=== PATIENT | male | born 1995 | race Caucasian/White ===

== ENCOUNTER → 2017-04-16 | Day surgery (SDC) | payer OTHER ==
[2017-04-15 16:17] VITALS: Ht 185.4 cm; Wt 84.1 kg
[~2017-04-16] VITALS: Ht 185.4 cm; Wt 84.1 kg
[~2017-04-16] MED LIST: ACET-1311 PO; ATROPINE SULFATE 0.1 MG/ML 5ML SYR IV PRN; BUPIVACAINE 0.5 % 5 MG/1 ML MPF 30ML VIAL ONE; CEFAZOLIN 2000 MG/60 ML D5W IV SCH; CEFAZOLIN IV 2,000 MG/60 ML D5W IV ONE; DEXAMETHASONE SOD INJ 4 MG/ML VIAL ONE; EpHEDrine SULFATE INJ 50 MG/ML AMP IV PRN; FENTANYL CITRATE INJ 50 MCG/1 ML 2 ML VIAL IV PRN; FENTANYL CITRATE INJ 50 MCG/1 ML 2 ML VIAL ONE; HYDR-5688 PO; HYDROCODONE/ACETAMOPHEN 5/325MG TAB PO PRN; HYDROmorphone INJ 1 MG/ML SYR IV PRN; IBUP-103 PO; LACTATED RINGER'S 1000ML 1,000 ML IV SCH; LIDOCAINE HCL 1% 20 ML VIAL ONE; LIDOCAINE HCL 2% 2 ML VIAL (20MG/ML) ONE; MIDAZOLAM HCL 1 MG/ML 2ML VIAL ONE; ONDANSETRON INJ 2 MG/ML 2 ML VIAL IV PRN; ONDANSETRON INJ 2 MG/ML 2 ML VIAL ONE; PATIENT'S ALLERGY INFO NEEDS ENTERED SCH; PROPOFOL IV EMULSION 10 MG/ML 20 ML VIAL IV ONE; ROPIVACAINE 0.5% 5 MG/ML 30 ML VIAL ONE; SODIUM CHLORIDE 0.9% 1000ML 1,000 ML IV SCH
--- NOTE | 2017-04-16 06:49 | History & Physical Bridge - [place] ---
H&P Re-Evaluation Bridge Note: I have examined the patient, reviewed the History & Physical and in the interval since the performance of the History & Physical I have noted the following changes of clinical significance: No changes noted
--- NOTE | 2017-04-16 15:41 | Discharge Instructions-SurgCtr ---
Discharge Instructions Date of Service Apr 16, 2017. Visit Reason for Visit: Right 5TH Metacarpal Closed Fx Discharge Discharge Diagnosis / Problem: SAME ABOVE Discharge Goals Goal(s): Decrease discomfort, Improve function Medications Stopped Medications Name(s): Stopped medications yesterday afternoon Restart Stopped Medication(s): MAY RESTART 04/16/2017 Activity Recommendations Activity Limitations: as noted below Anesthesia . Post Anesthesia Instructions: If you have had General Anesthesia or IV Sedation: * Do not drive today. * Resume driving when surgeon permits. * Do not make important decisions or sign legal documents today. * Call surgeon for: 1. Temperature elevations greater than 101 degrees F. 2. Uncontrollable pain. 3. Excessive bleeding. 4. Persistent nausea and vomiting. 5. Medication intolerance (nausea, vomiting or rash). * For nausea and vomiting use only clear liquids such as: tea, soda, bouillon until nausea subsides, then gradually increase diet as tolerated. * If you have any concerns or questions, call your surgeon's office. If physician is unavailable and it is an emergency, call 911 or go to the nearest emergency room. . Instructions / Follow-Up Instructions / Follow-Up MEDICATIONS: * Resume previous medications unless instructed otherwise by your surgeon. * Always take pain medication on a full stomach or with food to avoid upset stomach. * Do not drink alcohol or drive while taking narcotics. * Ibuprofen or Tylenol may be taken if narcotic not needed. SPECIAL CARE INSTRUCTIONS: __ None _X_ Keep extremity elevated and iced x 48 hours; apply ice 20-30 minutes 8-10 times/day. May remove at night. _X_ Sling (WEAR ONLY FOR COMFORT) __24 hrs/day __ Remove at night __ Shoulder Immobilizer __ 24 hrs/day __ Remove at night _X_ Dressing _X_ Maintain until seen in office, may shower with plastic over site __ Remove dressings in 24-48 hours and then may shower __ Cover incisions with band-aids after showering __ Do not remove steri-strips Call physician if chills or temperature rises above 102 degrees or pain unrelieved by prescribed pain medications at . . Diet Recommendations Home Diet: no limitations Fluid Restriction: None Procedures Procedures Performed: Right 5th Metacarpal Fracture Closed Reduction With K Wire Fixation Pending Studies Studies pending at discharge: no School Instructions Return To School: time frame (WHEN PAIN IS CONTROLLED) Medical Emergencies . Who to Call and When: Medical Emergencies: If at any time you feel your situation is an emergency, please call 911 immediately. . Non-Emergent Contact Non-Emergency issues call your: Primary Care Provider Call Non-Emergent contact if: you have a fever, temperature is above 101.5 . . "Provider Documentation" section prepared by Mike Man. .
[2017-04-16 16:06] VITALS: BP 135/76; PULSE 66; O2SAT 98
--- NOTE | 2017-04-16 16:06 | Anesthesiology Progress Note ---
Anesthesia Post Op Note Date & Time Apr 16, 2017 at 16:06 Vital Signs Pain Intensity: 0 Vital Signs Past 12 Hours Date Time Temp Pulse Resp B/P (MAP) Pulse Ox O2 Delivery O2 Flow Rate FiO2 04/16/17 15:44 36.3 57 16 126/84 (98) 98 Room Air 04/16/17 14:55 0 04/16/17 14:50 60 15 154/80 100 04/16/17 14:50 64 04/16/17 14:49 62 15 100 04/16/17 14:49 64 04/16/17 14:46 151/71 04/16/17 14:44 74 17 100 04/16/17 14:44 75 04/16/17 14:41 144/69 04/16/17 14:40 142/76 04/16/17 14:39 61 04/16/17 14:39 58 0 100 04/16/17 13:57 36.8 64 16 144/80 (101) 100 Room Air Notes Mental Status: alert / awake / arousable, participated in evaluation Pt Amnestic to Procedure: Yes Nausea / Vomiting: adequately controlled Pain: adequately controlled Airway Patency, RR, SpO2: stable & adequate BP & HR: stable & adequate Hydration State: stable & adequate Anesthetic Complications: no major complications apparent
--- NOTE | 2017-04-16 23:28 | OPERATIVE REPORT ---
DATE OF OPERATION: 04/16/2017 PREOPERATIVE DIAGNOSIS: Right fifth metacarpal fracture. POSTOPERATIVE DIAGNOSIS: Same. PROCEDURE: Closed reduction and percutaneous pinning of right fifth metacarpal fracture. SURGEON: Dr. Matt Macedo. SALES DEPARTMENT SUPERVISOR: Baljit Man PA-C, whose assistance was necessary for helping positioning the hand and helping with reduction. ANESTHESIA: Clavicular block with sedation. COMPLICATIONS: None. CONDITION: Stable to PACU. INDICATIONS: Jorge Luis is a 21-year-old male who punched a wall. He sustained an angulated fifth metacarpal fracture. He came to my office and we elected to proceed with percutaneous pinning. DESCRIPTION OF PROCEDURE: On 04/16/2017, he arrived at [facility] for the above procedure. He was seen in the preoperative holding area and the operative extremity was identified and signed. He was given preoperative antibiotics. He was also given a clavicular nerve block. He was taken back to the operating room, laid on the table in supine position, given basic sedation. The right hand was then prepped and draped in sterile fashion. A time-out was done and the patient and operative extremity was properly identified. The majority of the case was done under fluoroscopy. Under fluoroscopic guidance, I was able to reduce the fracture. A Two 0.45 mm. K-wires were placed from the distal aspect of the fifth metacarpal to the fourth metacarpal. Anatomic reduction was checked on orthogonal fluoroscopic images. The ends of the K-wires were then cut and Jurgan balls were placed on the ends. He was then placed in an ulnar gutter splint. He was then taken to the postanesthesia care unit in stable condition. He tolerated the procedure well. I attest to the content of the Intraoperative Record and any orders documented therein. Any exception s are noted below.
== END | disposition home or self-care (01) ==
LOC: X.SURG 13:45
PROVIDERS: ATTEND Orthopaedic Surgery
DX: S62.306A Unspecified fracture of fifth metacarpal bone, right hand, initial encounter for closed fracture (principal); W22.09XA Striking against other stationary object, initial encounter